=== PATIENT | male | born 1935 | race Caucasian/White ===

== ENCOUNTER 2016-06-11 11:00 | Day surgery (SDC) | payer OTHER ==
[~2016-06-11 11:00] MED LIST: LR 1,000 ML ONE
[2016-06-11] MEDS ORDERED: MYLICON DROPS (DOSE) MISC ONE (12:31)
[2016-06-11] MEDS ORDERED: DIPRIVAN 1% ONE (13:37)
[2016-06-11] MEDS ORDERED: PHENERGAN ONE ×2 (13:53→15:42)
[2016-06-11] MEDS ORDERED: LR 500 ML ONE (14:09)
[2016-06-11] MEDS ORDERED: ZOFRAN ONE (14:49)
[2016-06-11] MEDS ORDERED: XYLOCAINE-MPF 2% ONE (15:09)
--- NOTE | 2016-06-11 15:31 | OPERATIVE NOTE ---
PROCEDURE DATE: 06/11/2016 PROCEDURES PERFORMED: 1. Esophagogastroduodenoscopy. 2. Esophageal stent placement. SURGEON: Jovi Van MD PREOPERATIVE DIAGNOSES: 1. Esophageal stricture. 2. Esophageal cancer. POSTOPERATIVE DIAGNOSES: 1. Esophageal cancer. 2. Esophageal stricture. 3. Hiatal hernia. HISTORY: This is an 81-year-old gentleman who has a history of esophageal CA, who has undergone chemoradiation therapy and has his tumor back now. He is currently contemplating new treatment. He has developed dysphagia secondary to stricture from esophageal cancer. EGD is done today for esophageal stent placement for palliative purposes. DESCRIPTION OF PROCEDURE: Informed consent was obtained from the patient as well as his . The procedure, risks, benefits, and alternatives were explained in layman's terms. He understood and all of his pertinent questions were answered. The patient was brought to the endoscopy unit and was premedicated as per Anesthesia. After adequate sedation, while he was lying in the supine position, the gastroscope was introduced into the posterior pharynx and advanced under direct vision into the esophagus. 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 Starting from about 30 cm from the incisors, there were some tumors noticed. The distal end of the esophagus, around about 36-37 cm from the incisors, there was significant ingrowth of tissue and stricture noted. There was significant tumor; however, the scope could be easily passed through into the stomach. There was a 3 cm hiatal hernia noted. The scope was then passed into the stomach. The stomach was examined both in straight and retroflexed view, which revealed normal cardia, except for the hiatal hernia. No tumor was seen there. Otherwise, the body and antrum were normal. The scope was then passed through the normal pylorus into the duodenal bulb and then 2nd part of the duodenum. Both appeared to be normal. The scope was then withdrawn back into the stomach, where a guidewire was placed and the scope was removed. Before we did, I marked the distal and the proximal end of the tumor under fluoro. Then, after the guidewire was left in, a 10.3 cm long, partially covered, flexed wall stent was placed and deployed into the distal esophagus. The position was adjusted to covered the extent of the diseased process. The scope was reintroduced back into the esophagus where I could see the stent placed in adequate position. The scope was then withdrawn. The patient tolerated the procedure well. No complications were noted. The patient was then transferred to the recovery area in stable condition. IMPRESSION: 1. Esophageal cancer. 2. Esophageal stricture. 3. Hiatal hernia. 4. Flex wall stent placed without any complications. PLAN: I have advised him to continue proton pump inhibitor and continue other medication. He can start a full liquid diet today and we will get a Barium swallow in the morning. Depending on that result, further plans will be made. I will see him back in the office in a week. He was advised to follow up with Dr. Anders and Dr. Garcia as scheduled.
[2016-06-11 16:22] VITALS: BP 138/78
== END 2016-06-11 16:10 | disposition home or self-care (01) ==
LOC: ENDO 11:00
PROVIDERS: ATTEND Internal Medicine Gastroenterology
DX: K22.2 Esophageal obstruction (principal); Z85.01 Personal history of malignant neoplasm of esophagus; K44.9 Diaphragmatic hernia without obstruction or gangrene; I10 Essential (primary) hypertension; Z87.891 Personal history of nicotine dependence
CPT/HCPCS: 76000; J2405; J2550; J7120